=== PATIENT | male | born 1995 | race African-American/Black ===

== ENCOUNTER 2018-06-11 02:19 | Emergency (ER) | payer SELFPAY ==
[2018-06-11] MEDS ORDERED: Fluorescein 0.6 MG Ophth Strip ONE (02:37)
[2018-06-11] MEDS ORDERED: Benoxinate/Fluorescein 0.4-0.25% Ophth Soln 5 ML Bottle EYEBOTH STA (02:40)
[2018-06-11] MEDS ORDERED: Fluorescein 0.6 MG Ophth Strip EYEBOTH ONE (02:48)
[2018-06-11] MEDS ORDERED: Erythromycin Base 0.5% Ophth Oint 1 GM Tube EYERT ONE (02:54)
--- NOTE | 2018-06-11 03:02 | EDM.PDOC ---
ED HPI GENERAL MEDICAL PROBLEM - General Chief Complaint: Eye Problems Stated Complaint: EYE PROBLEM Time Seen by Provider: 06/11/18 02:20 Source of Information: Reports: Patient History Limitations: Reports: No Limitations - History of Present Illness INITIAL COMMENTS - FREE TEXT/NARRATIVE: This is a 22-year-old male. 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 Tonight he started having increasing pain in his eyes and he comes to the ER for evaluation. The patient states he was not wearing any sort of welding glasses or shield while he was there. The eyes are very gritty and scratchy and painful and he has a hard time keeping them open. He denies any other acute symptoms. Bilateral Eye Pain Score (Numeric/FACES): 2 - Related Data Allergies Allergy/AdvReac Type Severity Reaction Status Date / Time No Known Allergies Allergy Verified 06/11/18 02:28 Home Meds: Home Meds . [No Known Home Meds] 06/11/18 [History] Past Medical History - Past Health History Medical/Surgical History: Denies Medical/Surgical History Social & Family History - Tobacco Use Smoking Status *Q: Never Smoker - Caffeine Use Caffeine Use: Reports: None - Recreational Drug Use Recreational Drug Use: Yes Drug Use in Last 12 Months: Yes Recreational Drug Type: Reports: Marijuana/Hashish ED ROS GENERAL - Review of Systems Review Of Systems: See Below Constitutional: Denies: Fever, Chills HEENT: Reports: Eye Pain Respiratory: Reports: No Symptoms Cardiovascular: Reports: No Symptoms Endocrine: Reports: No Symptoms GI/Abdominal: Reports: No Symptoms : Reports: No Symptoms Musculoskeletal: Reports: No Symptoms Skin: Reports: No Symptoms Neurological: Reports: No Symptoms Psychiatric: Reports: No Symptoms Hematologic/Lymphatic: Reports: No Symptoms Immunologic: Reports: No Symptoms ED EXAM GENERAL W FULL EYE - Physical Exam Exam: See Below Exam Limited By: No Limitations General Appearance: Alert, WD/WN, Mild Distress Eye Exam: Bilateral Eye: Other (His eyes have erythema noted bilaterally, he has a very difficult time keeping his eyes open due to the scratchiness in the pain and the light sensitivity, with floresciene stain both his corneas appear to have a thermal corey but there is no foreign bodies noted.) Conjunctiva & Sclera: Bilateral: Injected Cornea Exam: Bilateral: Other (Thermal corey on the corneas bilaterally right is worse than the left) Extraocular Movements: Bilateral: Intact Pupils: Normal Accommodation Pupillary Reaction: Bilateral: Brisk Anterior Chamber: Bilateral: Normal Appearance Ears: Normal External Exam Nose: Normal Inspection Throat/Mouth: Normal Inspection, Normal Lips, Normal Voice, No Airway Compromise Head: Normocephalic Neck: Supple Respiratory/Chest: No Respiratory Distress Back Exam: Full Range of Motion Extremities: Normal Inspection, Normal Range of Motion Neurological: Alert, Oriented Psychiatric: Normal Affect, Normal Mood Skin Exam: Warm, Dry Course - Vital Signs Last Recorded V/S: Last Vital Signs Temp 98.6 F 06/11/18 02:26 Pulse 67 06/11/18 02:26 Resp 16 06/11/18 02:26 BP 135/74 06/11/18 02:26 Pulse Ox 99 06/11/18 02:26 - Orders/Labs/Meds Meds: Medications Discontinued Medications Generic Name Dose Route Start Last Admin Trade Name Freq PRN Reason Stop Dose Admin Erythromycin 1 gm 06/11/18 02:54 Erythromycin 0.5% Ophth Oint EYERT 06/11/18 02:55 ONETIME ONE Fluorescein Sodium Confirm 06/11/18 02:37 06/11/18 02:50 Ful-Jes Administered 06/11/18 02:38 Not Given Dose 1.2 mg .ROUTE .STK-MED ONE Fluorescein Sodium 0.12 mg 06/11/18 02:48 06/11/18 02:50 Ful-Jes EYEBOTH 06/11/18 02:49 0.12 mg ONETIME ONE Administration - Re-Assessments/Exams Free Text/Narrative Re-Assessment/Exam: 06/11/18 03:00 I explained to the patient that we will patch the right eye since it is the worst for 24 hours and he can take the patch off, he needs to get some artificial tears to use in his eyes for the next 3-4 days as a lubricant and to help with the soreness. He will be out of work for at least 48 hours to get his eyes a chance to heal. He is not to rub his eyes at all. Departure - Departure Time of Disposition: 03:01 Disposition: Home, Self-Care 01 Condition: Good Clinical Impression: Thermal burn of left cornea Qualifiers: Encounter type: initial encounter Qualified Code(s): T26.12XA - Burn of cornea and conjunctival sac, left eye, initial encounter Thermal burn of right cornea Qualifiers: Encounter type: initial encounter Qualified Code(s): T26.11XA - Burn of cornea and conjunctival sac, right eye, initial encounter - Discharge Information *PRESCRIPTION DRUG MONITORING PROGRAM REVIEWED*: Not Applicable *COPY OF PRESCRIPTION DRUG MONITORING REPORT IN PATIENT AMALIA: Not Applicable Referrals: PCP,Not In Area [Primary Care Provider] - Forms: ED Department Discharge, ED Return to Work/School Form Additional Instructions: Keep the right eye patch on for 24 hours then you may take it off, during this time that the eyes are healing from the burn do not rub them since it will cause the eyes to continue to be irritated and not heal properly, get some "Artificial Tears' that's over the counter at [facility] or the pharmacy and use them as much as you need to to help lubricate the eyes and make them feel better , for the next 24 hour stay in a dark environment, follow-up with your family doctor if needed or the ER if needed
== END 2018-06-11 03:16 | disposition home or self-care (01) ==
LOC: JD.ED 02:19
DX: T26.11XA Burn of cornea and conjunctival sac, right eye, initial encounter (principal); T26.12XA Burn of cornea and conjunctival sac, left eye, initial encounter; W89.0XXA Exposure to welding light (arc), initial encounter; X08.8XXA Exposure to other specified smoke, fire and flames, initial encounter
CPT/HCPCS: 99283; A9270; 99284